=== PATIENT | female | born 1940 | race Caucasian/White ===

== ENCOUNTER → 2016-03-10 | Outpatient (CLI) | payer MEDICARE, BC ==
[~2016-03-10] MED LIST: ASCO100T2 PO; ASPI-504 PO; CALCUIM; CITA10SO4 PO; CITA10TA4 PO; FLUT1DIS3 IH; GLUC1TAB29 PO; HYDR473S16 PO; MULT-35 PO; TETR15DR80 OP; VIT B12 PO; VIT.D PO
[2016-03-10 16:04] LABS: BASOPHILS % (AUTO) 0 % (0-2); EOSINOPHILS # (AUTO) 0.1 10^3uL; EOSINOPHILS % (AUTO) 1 % (0-4); LYMPHOCYTES # (AUTO) 1.5 X10^3; MEAN CORPUSCULAR HEMOGLOBIN 30.1 PG (26.0-34.0); MEAN CORPUSCULAR HGB CONC 32.2 g/dL (31.0-37.0); MEAN CORPUSCULAR VOLUME 94 FL (80-100); MEAN PLATELET VOLUME 9.1 FL (6.0-9.5); MONOCYTES # (AUTO) 0.4 X10^3; MONOCYTES % (AUTO) 5 % (3-11); NEUTROPHILS # (AUTO) 6.4 X10^3; NEUTROPHILS % (AUTO) 76 % (51-67); PLATELET COUNT 374 10^3uL (150-450); WHITE BLOOD COUNT 8.48 10^3uL (4.0-11.0)
[2016-03-10 16:39] LABS: ALBUMIN 3.7 g/dL (3.4-5.0); CALCULATED IONIZED CALCIUM 4.1 mg/dL (3.8-4.6); TOTAL PROTEIN 6.8 g/dL (6.4-8.5)
== END ==
LOC: LAB 15:47
PROVIDERS: ATTEND Internal Medicine Hematology & Oncology
DX: R91.1 Solitary pulmonary nodule (principal); Z85.038 Personal history of other malignant neoplasm of large intestine; Z85.118 Personal history of other malignant neoplasm of bronchus and lung
CPT/HCPCS: 36415; 80053; 82378; 85025

== ENCOUNTER → 2016-03-13 | Outpatient (CLI) | payer MEDICARE, BC ==
--- NOTE | 2016-03-13 11:33 | Diagnostic Imaging Report ---
PROCEDURE: CT chest with contrast only. TECHNIQUE: Multiple contiguous axial images were obtained through the chest after administration of intravenous contrast. INDICATION: Followup left upper lobe nodule. COMPARISON: CT chest of 12/19/2015 and 11/13/2015. FINDINGS: Lungs and airway: The left upper lobe area of architectural distortion and spiculated nodularity has not significantly changed in size since prior exam of 12/19/2015. The more central spiculated nodular component now measures 1.5 x 2.1 cm (previously 1.5 x 2.0 cm when measured similarly). The broad-based curvilinear soft tissue subpleural component of the mass has not substantially changed. The posterior right lower lobe subpleural 5 mm nodule is unchanged. However, there are new centrilobular micronodules in the posterior right lower lobe, which are likely infectious/inflammatory in etiology. No new pulmonary nodules would be concerning for metastatic disease. Diffuse centrilobular and paraseptal emphysema is unchanged. Pleura: No pleural effusion or pneumothorax. Heart and mediastinum: No supraclavicular or axillary lymphadenopathy. The precarinal lymph node is stable in size measuring 8 mm in short axis diameter. No new mediastinal lymphadenopathy. No parahilar lymphadenopathy. Heart is normal in size without pericardial effusion. Coronary artery calcifications are present. Normal caliber thoracic aorta with moderate atherosclerotic disease. No hiatal hernia. Upper abdomen: No concerning lesion in the upper abdomen that would suggest metastatic disease. Musculoskeletal: No concerning osseous lesions. Peripherally calcified bilateral breast implants. IMPRESSION: 1. The spiculated central left upper lobe mass is not substantially changed since 10/26/2015 exam although it has enlarged since the 07/17/2015 examination. Peripheral aspect of the left upper lobe process was biopsied on 11/13/2015. Slow progressive enlargement of the central process suggests low-grade neoplastic process in the absence of posttreatment change. However, if there has been radiation to this region, this could represent post treatment change. 2. Subpleural 5 mm nodule in the right lower lobe is unchanged. However, there are new clustered central micronodules in the right lower lobe which are likely infectious/inflammatory in etiology. 3. Stable borderline enlarged precarinal lymph node. No new intrathoracic lymphadenopathy. Dictated by: Dictated on workstation # [id number]
== END ==
LOC: RAD 09:04
PROVIDERS: ATTEND Internal Medicine Hematology & Oncology
DX: R91.1 Solitary pulmonary nodule (principal); Z85.038 Personal history of other malignant neoplasm of large intestine; Z85.118 Personal history of other malignant neoplasm of bronchus and lung
CPT/HCPCS: 71260; Q9967

== ENCOUNTER → 2016-06-09 | Outpatient (CLI) | payer MEDICARE, BC ==
[2016-06-09 13:10] LABS: BASOPHILS % (AUTO) 0 % (0-2); EOSINOPHILS # (AUTO) 0.1 10^3uL; EOSINOPHILS % (AUTO) 1 % (0-4); LYMPHOCYTES # (AUTO) 2.3 X10^3; MEAN CORPUSCULAR HEMOGLOBIN 30.2 PG (26.0-34.0); MEAN CORPUSCULAR VOLUME 94 FL (80-100); MEAN PLATELET VOLUME 9.5 FL (6.0-9.5); MONOCYTES # (AUTO) 0.5 X10^3; MONOCYTES % (AUTO) 7 % (3-11); NEUTROPHILS # (AUTO) 4.2 X10^3; NEUTROPHILS % (AUTO) 59 % (51-67); PLATELET COUNT 232 10^3uL (150-450); WHITE BLOOD COUNT 7.06 10^3uL (4.0-11.0)
[2016-06-09 13:27] LABS: ALBUMIN 4.4 g/dL (3.4-5.0); ANION GAP 14.6 MEQ/L (3-15); CALCULATED IONIZED CALCIUM 3.9 mg/dL (3.8-4.6); TOTAL PROTEIN 7.9 g/dL (6.4-8.5)
== END ==
LOC: LAB 13:01
PROVIDERS: ATTEND Internal Medicine Hematology & Oncology
DX: C34.11 Malignant neoplasm of upper lobe, right bronchus or lung (principal); C18.2 Malignant neoplasm of ascending colon
CPT/HCPCS: 36415; 80053; 82378; 85025

== ENCOUNTER → 2016-06-10 | Outpatient (CLI) | payer MEDICARE, BC ==
--- NOTE | 2016-06-10 12:02 | Diagnostic Imaging Report ---
PROCEDURE: CT chest with contrast only. TECHNIQUE: Multiple contiguous axial images were obtained through the chest after administration of intravenous contrast. INDICATION: Lung CA. COMPARISON: Comparison with 03/13/2016. FINDINGS: Severe obstructive interstitial lung disease is again noted with apical pleural scarring. The spiculated mass in the left upper lobe adjacent to the aortic arch is again noted. This has changed very little in size today measuring 2.1 x 1.9 cm. This area previously measured 2.0 x 1.7 cm. The subpleural nodule in the right lower lobe posteriorly is stable at 5 mm. The reticulonodular infiltrate in the right lung base has cleared. Pretracheal lymph node unchanged at 8 mm. No mediastinal or hilar adenopathy has developed. No pleural effusions or pericardial effusion. IMPRESSION: 1. Spiculated mass medially in the left upper lobe has increased slightly in size since previous exam. 2. Subpleural nodule 5 mm right lower lobe is stable. 3. Clearing of reticulonodular infiltrate in the right lower lobe. 4. Stable pretracheal lymph node. Dictated by: Dictated on workstation # [id number]
== END ==
LOC: RAD 08:29
PROVIDERS: ATTEND Internal Medicine Hematology & Oncology
DX: C34.11 Malignant neoplasm of upper lobe, right bronchus or lung (principal); C18.2 Malignant neoplasm of ascending colon
CPT/HCPCS: 71260; Q9967